=== PATIENT | female | born 1985 | race Caucasian/White ===

== ENCOUNTER 2018-09-09 20:12 | Emergency (ER) | payer SELFPAY ==
[~2018-09-09] VITALS: Ht 167.6 cm; Wt 53.5 kg
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
== END 2018-09-09 22:44 | disposition home or self-care (01) ==
LOC: ED 20:12
DX: R10.9 Unspecified abdominal pain (principal); R10.814 Left lower quadrant abdominal tenderness; Z87.891 Personal history of nicotine dependence
CPT/HCPCS: 74177; 80053; 81001; 83690; 84703; 85025; 99284-25